=== PATIENT | male | born 1985 | race Caucasian/White ===

== ENCOUNTER 2018-03-20 07:11 | Inpatient (IN) | payer BC ==
[2018-03-20 07:22] VITALS: BMI 27.1
[2018-03-20] MEDS ORDERED: Sodium Chloride 0.9% 1,000 ML IV ONE (07:32)
[2018-03-20] MEDS ORDERED: Sodium Chloride 0.9% 1,000 ML ONE (07:34)
--- NOTE | 2018-03-20 07:37 | C.PDOC ---
History Of Present Illness 32 yr old M c/o right flank pain with radiation to R abd, nausea and several episodes of vomiting since 2 AM. Pt has a hx of kidney stones on right side, hx of pancreatitis and gastritis. Denies drinking, chest pain, dysuria, hematuria. Denies prior lithotripsy or stenting, last stone come out on it's own over 5 yrs ago. Pt was treated by urologist in OR. Time Seen by Provider: 03/20/18 07:32 Chief Complaint (Nursing): Male Genitourinary History Per: Patient History/Exam Limitations: no limitations Onset/Duration Of Symptoms: Sudden Onset (2AM) Current Symptoms Are (Timing): Worse Pain Scale Rating Of: 10 Location Of Pain/Discomfort: RLQ, Other (right flank pain) Quality Of Discomfort: Sharp Associated Symptoms: Nausea, Vomiting. denies: Fever, Chills Past Medical History Reviewed: Historical Data, Nursing Documentation, Vital Signs Vital Signs: Last Vital Signs Temp 98.2 F 03/20/18 09:19 Pulse 56 L 03/20/18 09:19 Resp 20 03/20/18 09:19 BP 128/72 03/20/18 09:19 Pulse Ox 97 03/20/18 09:36 - Medical History PMH: Gastritis, Kidney Stones, Pancreatitis Family History: States: No Known Family Hx - Social History Hx Alcohol Use: No Hx Substance Use: No - Immunization History Hx Tetanus Toxoid Vaccination: No Hx Influenza Vaccination: Yes Hx Pneumococcal Vaccination: No Review Of Systems Constitutional: Negative for: Fever, Chills Gastrointestinal: Positive for: Nausea, Vomiting, Abdominal Pain (right flank pain) Genitourinary: Negative for: Dysuria, Frequency, Hematuria, Penile Discharge, Scrotal Pain Physical Exam - Physical Exam Appears: In Acute Distress (pain) Skin: Normal Color, Warm Head: Atraumatic, Normacephalic Eye(s): bilateral: Normal Inspection, PERRL, EOMI Throat: Normal Neck: Normal, Normal ROM Lymphatic: Normal Exam Chest: Symmetrical Cardiovascular: Rhythm Regular Respiratory: Normal Breath Sounds Gastrointestinal/Abdominal: Bowel Sounds, Tenderness (right flank, rlq), No Distention Back: CVA Tenderness (right) Male Genital: Normal Inspection Extremity: Normal ROM Neurological/Psych: Oriented x3, Normal Speech, Normal Motor, Normal Sensation ED Course And Treatment - Laboratory Results Result Diagrams: 03/20/18 07:38 06/23/18 07:38 ECG: Interpreted By Me ECG Rhythm: Sinus Bradycardia Rate From EC O2 Sat by Pulse Oximetry: 97 Pulse Ox Interpretation: Normal - Radiology CXR: Interpreted by Me CXR Interpretation: Yes: No Acute Disease - CT Scan/US Abdomen and Pelvis CT Other Rad Studies (CT/US): Read By Radiologist, Radiology Report Reviewed CT/US Interpretation: PROCEDURE: CT abdomen pelvis without intravenous contrast. HISTORY: Pain. COMPARISON: None. TECHNIQUE: Contiguous helical/ transaxial sections of the abdomen pelvis performed without contrast. Radiation dose: Total exam DLP = 947.91 mGy-cm. This CT exam was performed using one or more of the following dose reduction techniques: Automated exposure control, adjustment of the mA and/or kV according to patient size, and/ or use of iterative reconstruction technique.. FINDINGS: LOWER THORAX: Heart size normal. No significant pericardial effusion. There is a small hiatal hernia. Lung bases are clear. No infiltrate effusion or basilar pneumothorax. LIVER: Liver is upper limits of normal measuring nearly 18 cm. GALLBLADDER AND BILE DUCTS: Unremarkable. PANCREAS: Unremarkable. No gross lesion or ductal dilatation. SPLEEN: Spleen is mildly enlarged measuring approximately 12.6 cm in AP dimension. ADRENALS: No obvious adrenal lesions. KIDNEYS AND URETERS: There is a punctate calcifications seen lower pole left kidney. No evidence of hydronephrosis. VASCULATURE: Unremarkable. No aortic aneurysm. BOWEL: Evaluation of the bowel is limited due to the lack of oral contrast material. Stomach is incompletely distended. Visualized loops of small bowel exhibit normal contour and caliber. No evidence of acute mechanical small bowel obstruction. Moderately large amount of stool seen within cecum at ascending and transverse and to a lesser degree descending colon consistent with mild fecal retention/ constipation. No definitive mural wall thickening. APPENDIX: There is dilatation of the appendix measuring over 10 mm in greatest dimension with some vague infiltration changes in the adjacent mesenteric. Findings most consistent with early acute appendicitis. Clinical correlation recommended. PERITONEUM: Unremarkable. No free fluid. No free air. Small fat containing umbilical hernia. LYMPH NODES: Unremarkable. No enlarged lymph nodes. BLADDER : Unremarkable. REPRODUCTIVE: Unremarkable. BONES: No acute fracture. OTHER FINDINGS: None. IMPRESSION: Findings consistent with early mild acute appendicitis. Note that these findings were discussed with urgency room Dr. Kwong at approximately 8:42 a.m. with written down and read back verification. Findings consistent mild constipation. Punctate nonobstructing calculus left kidney. No hydronephrosis. Small fat containing umbilical hernia. Borderline hepatosplenomegaly. Progress Note: 8:[address] Chau called, requested to call neurosurgical nurse practitioner for eval. Pt was seen by neurosurgical nurse practitioner and admitted to Dr. Chau. Disposition Counseled Patient/Family Regarding: Studies Performed - Disposition Disposition: HOSPITALIZED Disposition Time: 09:34 Condition: STABLE - Clinical Impression Clinical Impression: Appendicitis Decision To Admit - Pt Status Changed To: Hospital Disposition Of: Inpatient - Admit Certification Admit to Inpatient:: After my assessment, the patient will require hospitalization for at least two midnights. This is because of the severity of symptoms shown, intensity of services needed, and/or the medical risk in this patient being treated as an outpatient. - InPatient: Physician Admission Certification:: PT IS ADMITTED FOR ACUTE APPENDICITIS - . Bed Request Type: Regular Admitting Physician: Magnolia Chau Patient Diagnosis: Appendicitis
[2018-03-20 07:45] LABS: BASO % 0.5 % (0.0-2.0); EOS # 0.1 K/uL (0.0-0.7); EOS % 1.5 % (0.0-4.0); HEMOGLOBIN 15.2 g/dL (12.0-18.0); LYMPH # 1.9 K/uL (1.0-4.3); LYMPH % 20.1 % (20.0-40.0); MEAN CELL VOLUME 89.8 fL (80.0-94.0); MEAN CORPUSCULAR HEMOGLOBIN 32.5 pg (27.0-31.0); MEAN CORPUSCULAR HGB CONC 36.2 g/dL (33.0-37.0); MEAN PLATELET VOLUME 8.1 fL (7.2-11.7); MONO # 0.8 K/uL (0.0-0.8); MONO % 8.2 % (0.0-10.0); NEUT # 6.5 K/uL (1.8-7.0); NEUT % 69.7 % (50.0-75.0); RBC 4.69 Mil/uL (4.40-5.90); RED CELL DISTRIBUTION WIDTH 12.9 % (11.5-14.5); WHITE BLOOD COUNT 9.3 K/uL (4.8-10.8)
[2018-03-20 08:00] LABS: ALB/GLOB RATIO 1.8 (1.0-2.1); ALBUMIN 4.8 g/dL (3.5-5.0); ALT/SGPT 43 U/L (21-72); AST/SGOT 35 U/L (17-59); BLOOD UREA NITROGEN 17 mg/dL (9-20); CALCIUM 9.1 mg/dl (8.6-10.4); GFR AFRICAN-AMERICAN > 60; GFR NON-AFRICAN AMERICAN > 60; LIPASE 74 U/L (23-300)
--- NOTE | 2018-03-20 08:51 | CT ---
PROCEDURE: CT abdomen pelvis without intravenous contrast HISTORY: Pain COMPARISON: None. TECHNIQUE: Contiguous helical/transaxial sections of the abdomen pelvis performed without contrast Radiation dose: Total exam DLP = 947.91 mGy-cm. This CT exam was performed using one or more of the following dose reduction techniques: Automated exposure control, adjustment of the mA and/or kV according to patient size, and/or use of iterative reconstruction technique.. FINDINGS: LOWER THORAX: Heart size normal. No significant pericardial effusion. There is a small hiatal hernia. Lung bases are clear. No infiltrate effusion or basilar pneumothorax. LIVER: Liver is upper limits of normal measuring nearly 18 cm GALLBLADDER AND BILE DUCTS: Unremarkable. PANCREAS: Unremarkable. No gross lesion or ductal dilatation. SPLEEN: Spleen is mildly enlarged measuring approximately 12.6 cm in AP dimension. ADRENALS: No obvious adrenal lesions. KIDNEYS AND URETERS: There is a punctate calcifications seen lower pole left kidney. No evidence of hydronephrosis. VASCULATURE: Unremarkable. No aortic aneurysm. BOWEL: Evaluation of the bowel is limited due to the lack of oral contrast material. Stomach is incompletely distended. Visualized loops of small bowel exhibit normal contour and caliber. No evidence of acute mechanical small bowel obstruction. Moderately large amount of stool seen within cecum at ascending and transverse and to a lesser degree descending colon consistent with mild fecal retention/ constipation. No definitive mural wall thickening. APPENDIX: There is dilatation of the appendix measuring over 10 mm in greatest dimension with some vague infiltration changes in the adjacent mesenteric. Findings most consistent with early acute appendicitis. Clinical correlation recommended. PERITONEUM: Unremarkable. No free fluid. No free air. Small fat containing umbilical hernia. LYMPH NODES: Unremarkable. No enlarged lymph nodes. BLADDER: Unremarkable. REPRODUCTIVE: Unremarkable. BONES: No acute fracture. OTHER FINDINGS: None. IMPRESSION: Findings consistent with early mild acute appendicitis. Note that these findings were discussed with urgency room Dr. Kwong at approximately 8:42 a.m. with written down and read back verification. Findings consistent mild constipation. Punctate nonobstructing calculus left kidney. No hydronephrosis. Small fat containing umbilical hernia. Borderline hepatosplenomegaly.
[2018-03-20] MEDS ORDERED: Piperacillin/Tazobact 3.375 gm 100 ML IV STA (08:53)
[2018-03-20] MEDS ORDERED: DiphenhydrAMINE 50 mg/ml Inj IVP STA (09:10)
[2018-03-20 09:18] LABS: PROTHROMBIN TIME 10.6 SECONDS (9.7-12.2)
[2018-03-20] MEDS ORDERED: DiphenhydrAMINE 50 mg/ml Inj ONE (09:29)
[2018-03-20] MEDS ORDERED: Piperacillin/Tazobact 3.375 gm 100 ML IVPB ONE (09:29)
[2018-03-20] MEDS ORDERED: Morphine 4 MG/ML VIAL ONE (09:29)
--- NOTE | 2018-03-20 09:30 | CP.PCM.HP ---
<Femi Gauthier - Last Filed: 03/20/18 09:25> History of Present Illness - History of Present Illness History of Present Illness: H&P FOR DR. JACKSON 32M presents to [facility] ER with abdominal pain that began 7 hours ago. Patient states he was going to the bathroom when he felt the pain located in the mid abdomen initially. Pain is now located in the right lower quadrant and is continuous. He admits to nausea and vomiting. Patient vomited during physical exam. He denies any fevers or chills. He states he has been having problems moving his bowels for a while now. He recently had hemorrhoids removed by a surgeon in [facility] 2 days ago. He is not tolerating any diet and does not feel like eating, anorexia. PMH: Pancreatitis (last bout 8 years ago), Gastritis PSH: Hemorrhoidectomy Social: admits to tobacco use, and social alcohol use, denies illicit drugs Allergies: NKDA Present on Admission - Present on Admission Any Indicators Present on Admission: No Past Patient History - Past Social History Smoking Status: Light Smoker < 10 Cigarettes Daily - RENAL Hx Kidney Stones: Yes - GASTROINTESTINAL Hx Gastritis: Yes Hx Pancreatitis: Yes - PSYCHIATRIC Hx Substance Use: No - SURGICAL HISTORY Hx Surgeries: No - ANESTHESIA Hx Anesthesia: No Meds Allergies/Adverse Reactions: Allergies Allergy/AdvReac Type Severity Reaction Status Date / Time No Known Allergies Allergy Verified 03/20/18 07:21 Physical Exam - Constitutional Additional comments: Very uncomfortably due to pain - Head Exam Head Exam: ATRAUMATIC - Eye Exam Eye Exam: EOMI, PERRL - ENT Exam ENT Exam: Mucous Membranes Moist - Respiratory Exam Respiratory Exam: Clear to Auscultation Bilateral, NORMAL BREATHING PATTERN - Cardiovascular Exam Cardiovascular Exam: REGULAR RHYTHM, +S1, +S2 - GI/Abdominal Exam GI & Abdominal Exam: Guarding, Soft, Tenderness. absent: Distended, Firm, Rebound, Rigid - Extremities Exam Extremities exam: Negative for: pedal edema, tenderness - Neurological Exam Neurological exam: Alert, Oriented x3 - Psychiatric Exam Psychiatric exam: Normal Affect, Normal Mood - Skin Skin Exam: Dry, Intact, Normal Color, Warm Results - Vital Signs Recent Vital Signs: Last Vital Signs Temp 98.2 F 03/20/18 09:19 Pulse 56 L 03/20/18 09:19 Resp 20 03/20/18 09:19 BP 128/72 03/20/18 09:19 Pulse Ox 99 03/20/18 09:19 - Labs Result Diagrams: 03/20/18 07:38 03/20/18 07:38 Labs: Laboratory Results - last 24 hr 03/20/18 03/20/18 03/20/18 07:38 07:38 08:59 WBC 9.3 RBC 4.69 Hgb 15.2 Hct 42.1 MCV 89.8 MCH 32.5 H MCHC 36.2 RDW 12.9 Plt Count 234 MPV 8.1 Neut % (Auto) 69.7 Lymph % (Auto) 20.1 Shelby % (Auto) 8.2 Eos % (Auto) 1.5 Baso % (Auto) 0.5 Neut # (Auto) 6.5 Lymph # (Auto) 1.9 Shelby # (Auto) 0.8 Eos # (Auto) 0.1 Baso # (Auto) 0.0 PT 10.6 INR 1.0 APTT 29 Sodium 141 Potassium 4.2 Chloride 104 Carbon Dioxide 26 Anion Gap 15 BUN 17 Creatinine 0.8 Est GFR ( Amer) > 60 Est GFR (Non-Af Amer) > 60 Random Glucose 120 H Calcium 9.1 Total Bilirubin 0.7 AST 35 ALT 43 Alkaline Phosphatase 39 Total Protein 7.5 Albumin 4.8 Globulin 2.7 Albumin/Globulin Ratio 1.8 Lipase 74 Alcohol, Quantitative < 10 Assessment & Plan - Assessment and Plan (Free Text) Assessment: 32M with acute appendicitis Plan: - NPO, IVF - Pain control - Anti emetics - Antibiotics - Schedules and consented for OR today Discussed with Dr. Isca Gauthier, PGY2 <Magnolia Jackson - Last Filed: 03/20/18 17:35> Results - Vital Signs Recent Vital Signs: Last Vital Signs Temp 99.0 F 03/20/18 17:01 Pulse 78 03/20/18 17:01 Resp 20 03/20/18 17:01 BP 121/65 03/20/18 17:01 Pulse Ox 97 03/20/18 17:01 - Labs Result Diagrams: 03/20/18 07:38 03/20/18 07:38 Labs: Laboratory Results - last 24 hr 03/20/18 03/20/18 03/20/18 07:38 07:38 08:59 WBC 9.3 RBC 4.69 Hgb 15.2 Hct 42.1 MCV 89.8 MCH 32.5 H MCHC 36.2 RDW 12.9 Plt Count 234 MPV 8.1 Neut % (Auto) 69.7 Lymph % (Auto) 20.1 Shelby % (Auto) 8.2 Eos % (Auto) 1.5 Baso % (Auto) 0.5 Neut # (Auto) 6.5 Lymph # (Auto) 1.9 Shelby # (Auto) 0.8 Eos # (Auto) 0.1 Baso # (Auto) 0.0 PT 10.6 INR 1.0 APTT 29 Sodium 141 Potassium 4.2 Chloride 104 Carbon Dioxide 26 Anion Gap 15 BUN 17 Creatinine 0.8 Est GFR ( Amer) > 60 Est GFR (Non-Af Amer) > 60 Random Glucose 120 H Calcium 9.1 Total Bilirubin 0.7 AST 35 ALT 43 Alkaline Phosphatase 39 Total Protein 7.5 Albumin 4.8 Globulin 2.7 Albumin/Globulin Ratio 1.8 Lipase 74 Urine Color Urine Clarity Urine pH Ur Specific [place] Urine Protein Urine Glucose (UA) Urine Ketones Urine Blood Urine Nitrate Urine Bilirubin Urine Urobilinogen Ur Leukocyte Esterase Urine WBC (Auto) Urine RBC (Auto) Alcohol, Quantitative < 10 Blood Type Antibody Screen 03/20/18 03/20/18 09:30 11:07 WBC RBC Hgb Hct MCV MCH MCHC RDW Plt Count MPV Neut % (Auto) Lymph % (Auto) Shelby % (Auto) Eos % (Auto) Baso % (Auto) Neut # (Auto) Lymph # (Auto) Shelby # (Auto) Eos # (Auto) Baso # (Auto) PT INR APTT Sodium Potassium Chloride Carbon Dioxide Anion Gap BUN Creatinine Est GFR ( Amer) Est GFR (Non-Af Amer) Random Glucose Calcium Total Bilirubin AST ALT Alkaline Phosphatase Total Protein Albumin Globulin Albumin/Globulin Ratio Lipase Urine Color Yellow Urine Clarity Clear Urine pH 6.0 Ur Specific [place] 1.018 Urine Protein Negative Urine Glucose (UA) Normal Urine Ketones Negative Urine Blood Negative Urine Nitrate Negative Urine Bilirubin Negative Urine Urobilinogen Normal Ur Leukocyte Esterase Neg Urine WBC (Auto) < 1 Urine RBC (Auto) 1 Alcohol, Quantitative Blood Type A POSITIVE Antibody Screen Negative Assessment & Plan - Assessment and Plan (Free Text) Plan: I personally saw and examined the patient at bedside with the resident staff and agree with the above assessment and plan. 32 Male with symptoms, exam, and CT findings of early acute appendicitis. I personally reviewed the CT imaging and reports - early tip appendicitis with periappendiceal stranding. No sign of perforation. He does also have small fat containing umbilical hernia. Risks and benefits of laparoscopic appendectomy discussed with patient and . All questions answered. Consent signed. - Date & Time Date: 03/20/18 Time: 10:00
[2018-03-20] MEDS ORDERED: HYDROmorphone 1 mg/ml ISec IVP PRN (09:32)
[2018-03-20] MEDS: Piperacillin/Tazobact 3.375 GM in Sodium Chloride 100 ML IVPB SCH ×3 (09:36→16:30)
[2018-03-20] MEDS ORDERED: Sodium Chloride 0.9% 1,000 ML IV SCH (09:45)
[2018-03-20] MEDS ORDERED: Succinylcholine Chloride 20 mg/ml Syr (5 ml) IV ONE (11:26)
[2018-03-20] MEDS ORDERED: Rocuronium 10 mg/ml (5 ml) ONE (11:26)
[2018-03-20] MEDS ORDERED: Bupivacaine HCl 0.25% PF (30 ml) Inj ONE (11:27)
[2018-03-20] MEDS ORDERED: Lidocaine Hydrochloride 10 ML INJ ONE (11:27)
[2018-03-20] MEDS ORDERED: Midazolam 2 MG/2 ML VIAL ONE (11:27)
[2018-03-20] MEDS ORDERED: Propofol 10 mg/ml Inj (20 ML) ONE (11:29)
[2018-03-20] MEDS ORDERED: Atropine 0.4 mg/ml Inj (1 mL) ONE (11:32)
[2018-03-20 11:35] LABS: URINE BILIRUBIN NEGATIVE (NEGATIVE); URINE BLOOD NEGATIVE (NEGATIVE); URINE CLARITY Clear (Clear); URINE COLOR Yellow (YELLOW); URINE GLUCOSE (UA) NORMAL (Normal); URINE LEUKOCYTE ESTERASE NEG Leu/uL (Negative); URINE PROTEIN NEGATIVE (NEGATIVE); URINE UROBILINOGEN NORMAL mg/dL (0.2-1.0)
[2018-03-20] MEDS ORDERED: Neostigmine Methylsulfate 3mg/3ml Syringe IV ONE (12:34)
[2018-03-20] MEDS ORDERED: Oxycodone/Acetaminophen 5/325 mg Tab PO PRN (12:59)
--- NOTE | 2018-03-20 12:59 | PCM.SURG1 ---
Surgeon's Initial Post Op Note - Surgeon's Notes Surgeon: Dr. Chau Campaign Consultant: Dr. Lee PGY2 Type of Anesthesia: General Endo Anesthesia Administered By: Dr. Chaudhary Pre-Operative Diagnosis: Acute Appendicitis, Umbilical Hernia Operative Findings: See operative dictation Post-Operative Diagnosis: Acute Appendicitis, Umbilical Hernia Operation Performed: Laparoscopic Appendectomy, Umbilical Hernia Repair Specimen/Specimens Removed: Umbilical Hernia Fat, Appendix Estimated Blood Loss: EBL {In ML}: 20 Blood Products Given: N/A Drains Used: No Drains Post-Op Condition: Good Date of Surgery/Procedure: 03/20/18 Time of Surgery/Procedure: 12:59
[2018-03-20] MEDS ORDERED: Lactated Ringer's 1,000 ML IV SCH (13:15)
[2018-03-20] MEDS ORDERED: HYDROmorphone 0.5 mg/0.5 ml ISec IVP PRN (13:29)
[2018-03-20] MEDS ORDERED: HYDROmorphone 0.5 mg/0.5 ml ISec ONE (13:36)
[2018-03-20 17:01] VITALS: BP 121/65; PULSE 78; RESP 20; TEMP 99; O2SAT 97
--- NOTE | 2018-03-20 17:04 | RAD ---
HISTORY: preop COMPARISON: No prior. FINDINGS: LUNGS: The lungs are well inflated and clear. PLEURA: No significant pleural effusion identified, no pneumothorax apparent. CARDIOVASCULAR: Normal. OSSEOUS STRUCTURES: No significant abnormalities. VISUALIZED UPPER ABDOMEN: Normal. OTHER FINDINGS: None. IMPRESSION: No active pulmonary disease.
--- NOTE | 2018-03-20 18:07 | PCM.OP ---
Operative Report - Operative Report Date of Surgery/Procedure: 03/20/18 Time of Surgery/Procedure: 11:50 Surgeon: Magnolia Chau MD Live In Housekeeper: Trever Lee DO (PGY2 resident) Anesthesia/Sedation: General endotracheal; 1% lidocaine + 0.25% Marcaine mix local anesthesia Pre-Operative Diagnosis: Acute simple appendicitis. Umbilical hernia Post-Operative Diagnosis: Acute simple appendicitis. Umbilical hernia, fat containing Indication for Surgery: INDICATIONS FOR SURGERY: This is a 32 year old male who presented to the emergency department earlier this evening with 24 hours of periumbilical pain which migrated to his right lower quadrant and CT scan which demonstrated simple appendicitis. Risks and benefits of laparoscopic possible open, appendectomy discussed as documented in clinical chart. All questions answered and informed consent signed prior to operation. Operative Findings: Dilated, mildly inflamed appendix without evidence of perofation. Scant fluid in pelvis; Appendix removed intact; Mesoappendiceal and cecal staple lines in tact without leak or bleeding at end of case. Procedure/Operation Description: PROCEDURE PERFORMED: Laparoscopic Appendectomy. Omental buttress of cecal staple line. Primary suture repair of umbilical hernia (as part of closure). DETAILS OF PROCEDURE: The patient was given a preoperative dose of Zosyn 20 minutes prior to incision. SCD boots were placed for DVT prophylaxis. An orogastric tube placed in order to empty the stomach after the induction of general anesthesia. Upper body warmer placed. Small glez was placed to decopress the bladder (and removed at the end of case). Hair removal performed with shaver. Timeout was perforemd prior to incison. The abdomen was prepped and draped in sterile fashion. A vertical incision directly over the umbilicus was made in the skin and taken down until we encoutered the patient umbical hernia containing fat. The fat was cleared from the fascial edges and sent to pathology. The defect size was approximately 7mm and elraged to 10mm. A 10mm port was then placed under direct vision and the abdomen was insufflated to 15 mmHg pressure with CO2. A 5mm 30 degree laparoscope was then inserted and no signs of injury from abdominal entry. We then placed 2 additional 5mm working ports. All trocar sites were preanesthetized with local anesthesia and ports placed under direct vision without incident. One in left lower quadrant, lateral to the rectus and inferior epigastric vessels; and another in the suprapubic region. The abdomen was generally insepected and no other pathology found. Scant fluid in pelvis. Dilated, mildly inflamed appendix without perforation noted. We began by sweeping the small intestine out of the pelvis and easily visualized the cecum tracing the taenia down to the appendix and terminal ileum with identifcation of the fat/fold of treves. A mesenteric window was created bluntly in between base of appendix at cecum and mesoappendix, and 45m linear stapler vascular white load was used to ligate and divide the appendiceal pedicle. The staple line was inspected and noted to be intact without bleeding. Next a 45 mm blue load linear staple was used to divide the appendix at its base, being sure not to incorporate cecum. The specimen was placed in an Endocatch bag and removed from the 12mm trocar. The trocar reinserted and we next turned our attention to inspecting the staple line. The staple lines were carefully inspected and appeared hemostatic. Omentum was then draped over the suture line and instruments and ports removed under direct vision. The abdomen was then desufflated. 0-vycrl suture in a figure of eight fashion x1 was used to close the umilical fasia. The skin was closed with 4-0 monocryl and dermabond. All sponge, needle and instrument counts were correct. The patient was extubated in the operating room, and taken to the recovery room in stable condition. I was present for the entirety of the operation. Estimated Blood Loss: 20 Complications: none Specimen: Umbilical hernia sac. Appendix with mesoappendix Discharge & Condition: stable to pacu
--- NOTE | 2018-03-20 19:07 | CP.PCM.PN ---
Subjective - Date & Time of Evaluation Date of Evaluation: 03/20/18 Time of Evaluation: 19:04 - Subjective Subjective: General Surgery Post Op Check This 32M was seen and examined at bedside. He reports pain well controlled and that he feels a lot better compared to prior to surgery. He reports he was able to void, he is ambulating without issues, tolerated a regular diet for dinner. He is requesting to be discharged home. Objective - Vital Signs/Intake and Output Vital Signs (last 24 hours): Temp Pulse Resp BP Pulse Ox 99.0 F 78 20 121/65 97 03/20/18 17:01 03/20/18 17:01 03/20/18 17:01 03/20/18 17:01 03/20/18 17:01 Intake and Output: 03/20/18 03/21/18 18:59 06:59 Intake Total 1700 Output Total 125 Balance 1575 - Medications Medications: Current Medications Hydromorphone HCl (Dilaudid) 1 mg IVP Q4H PRN PRN Reason: Pain, severe (8-10) Last Admin: 03/20/18 14:55 Dose: 1 mg Hydromorphone HCl (Dilaudid) 0.5 mg IVP STAT PRN PRN Reason: Pain, moderate (4-7) Piperacillin Sod/Tazobactam (Sod 3.375 gm/ Sodium Chloride) 100 mls @ 200 mls/ hr IVPB Q6H [place] PRN Reason: Protocol Last Admin: 03/20/18 16:30 Dose: 200 mls/hr Sodium Chloride (Sodium Chloride 0.9%) 1,000 mls @ 130 mls/hr IV .Q7H42M [facility] Last Admin: 03/20/18 10:10 Dose: 130 mls/hr Lactated Ringer's (Lactated Ringer's) 1,000 mls @ 130 mls/hr IV .Q7H42M [facility] Last Admin: 03/20/18 15:00 Dose: 130 mls/hr Metoclopramide HCl (Reglan) 10 mg IVP STAT PRN PRN Reason: Nausea/Vomiting Ondansetron HCl (Zofran Inj) 4 mg IVP Q4H PRN PRN Reason: Nausea/Vomiting Last Admin: 03/20/18 14:59 Dose: 4 mg Oxycodone/Acetaminophen (Percocet 5/325 Mg Tab) 1 tab PO Q4H PRN PRN Reason: Pain, moderate (4-7) Stop: 03/23/18 13:00 Pneumococcal Polyvalent Vaccine (Pneumovax 23 Vaccine) 0.5 ml IM .ONCE ONE Stop: 03/21/18 10:01 - Labs Labs: 03/20/18 07:38 03/20/18 07:38 PT 10.6 SECONDS (9.7-12.2) 03/20/18 08:59 INR 1.0 03/20/18 08:59 APTT 29 SECONDS (21-34) 03/20/18 08:59 - Constitutional Appears: Non-toxic, No Acute Distress - Head Exam Head Exam: ATRAUMATIC, NORMOCEPHALIC - Eye Exam Eye Exam: EOMI - ENT Exam ENT Exam: Mucous Membranes Moist - Respiratory Exam Respiratory Exam: NORMAL BREATHING PATTERN - Cardiovascular Exam Cardiovascular Exam: +S1, +S2 - GI/Abdominal Exam GI & Abdominal Exam: Soft. absent: Distended, Firm, Guarding, Rigid Additional comments: Appropriately tender, incisions with glue in place well approximated - Neurological Exam Neurological Exam: Alert, Awake - Psychiatric Exam Psychiatric exam: Normal Affect, Normal Mood - Skin Skin Exam: Dry, Intact Assessment and Plan - Assessment and Plan (Free Text) Assessment: 32M POD#0 S/P lap appy Patient tolerated the procedure well Voiding Tolerating PO Clear for D/C Home Followup instructions handed to patient Followup in 2-3 weeks in office Prescriptions provided for pain control and constipation D/W Dr. Isac Lee PGY2
[2018-03-21] MEDS ORDERED: Pneumococcal 23-Valent Vaccine IM ONE (10:00)
--- NOTE | 2018-03-22 20:04 | CARD ---
APPROVED REPORT EKG Measurement Heart [id number] PA [id number] [id number] <Conclusion> Sinus bradycardia with sinus arrhythmia Left anterior fascicular block Nonspecific ST abnormality Abnormal ECG
== END 2018-03-20 20:59 | disposition home or self-care (01) | DRG 343 ==
LOC: C.ER 07:11 → C.9E 09:24 → C.3T 10:46
PROVIDERS: ADMIT Surgery; ATTEND Surgery
PROC: 0WQF4ZZ Repair Abdominal Wall, Percutaneous Endoscopic Approach (ICD-10-PCS; 2018-03-20)
PROC: 0DTJ4ZZ Resection of Appendix, Percutaneous Endoscopic Approach (ICD-10-PCS; principal; 2018-03-20 11:00)
DX: K35.80 Unspecified acute appendicitis (principal); K42.9 Umbilical hernia without obstruction or gangrene; K59.00 Constipation, unspecified; Z72.0 Tobacco use